=== PATIENT | female | born 1960 | race Caucasian/White ===

== ENCOUNTER 2017-12-09 13:49 | Emergency (ER) | payer OTHER ==
[~2017-12-09] VITALS: Ht 152.4 cm; Wt 54.4 kg
[2017-12-09] MEDS ORDERED: CELEXA20 MG (14:57)
[2017-12-09] MEDS ORDERED: VALTREX1000 MG PO (17:09)
[2017-12-09] MEDS ORDERED: MUPIROCIN22 GM TOP (17:09)
== END 2017-12-09 19:48 | disposition home or self-care (01) ==
LOC: ER 13:49
DX: A60.04 Herpesviral vulvovaginitis (principal)